=== PATIENT | male | born 1990 | race Caucasian/White ===

== ENCOUNTER 2018-11-05 17:28 | Inpatient (IN) | payer OTHER ==
[~2018-11-05] VITALS: Ht 185.4 cm; Wt 76.3 kg
--- NOTE | 2018-11-05 17:40 | NUR ---
PT BIB [facility] FROM [facility] AFTER WITNESSED SEIZURE ACTIVITY, PT STATES HAS BEEN HAVING SEIZURES OVER LAST FEW DAYS. VISITING FROM [place]. PT REPORTS HEAVY ETOH FOR YEARS, DRINKING ABOUT 1/2 GALLON A DAY. CONNECTED TO ALL MONITORING, TACHY HR, RAPID RESP RATE. SEIZURE PRECAUTIONS IN PLACE. MD TO BEDSIDE FOR ASSESSMENT. CALL LIGHT WITHIN REACH
--- NOTE | 2018-11-05 17:45 | NUR ---
AT BEDSIDE FOR ASSESSMENT
[2018-11-05] MEDS ORDERED: ONDANSETRON 2MG/ML, 2ML ONE (17:51)
[2018-11-05] MEDS ORDERED: LORazepam 2 MG/ML, 1ML ONE (17:51)
[2018-11-05] MEDS ORDERED: THIAMINE 100MG TABLET PO ONE (18:00)
[2018-11-05] MEDS ORDERED: PHENOBARBITAL SODIUM 800 MG in SODIUM CHLORIDE 0.9% 50 ML IVPB ONE (18:00)
[2018-11-05] MEDS ORDERED: ONDANSETRON 2MG/ML, 2ML IVPush ONE (18:00)
[2018-11-05] MEDS ORDERED: LORazepam 2 MG/ML, 1ML IVPush PRN (18:00)
[2018-11-05] MEDS ORDERED: SODIUM CHLORIDE 0.9% 1,000ML IVBOLUS ONE (18:00)
--- NOTE | 2018-11-05 18:04 | NUR ---
LABS COLLECTED, RAD COMPLETED. EKG DONE. PT MEDICATED PER MD REQUEST. WILL CONTINUE TO MONITOR. CALL LIGHT WITHIN REACH
[2018-11-05 18:09] LABS: BASOPHILS # (AUTO) 0.02 x10^3/uL (0-0.1); BASOPHILS % (AUTO) 0 % (0-1); EOSINOPHILS # (AUTO) 0.04 x10^3/uL (0-0.4); EOSINOPHILS % (AUTO) 1 % (1-7); LYMPHOCYTES # (AUTO) 2.24 x10^3/uL (1-3.4); LYMPHOCYTES % (AUTO) 32 % (22-44); MD NO; MEAN CORPUSCULAR HEMOGLOBIN 37.1 pg (27.5-34.5); MEAN CORPUSCULAR HGB CONC 34.7 g/dL (33.2-36.2); MEAN CORPUSCULAR VOLUME 106.7 fL (81-97); MEAN PLATELET VOLUME 8.3 fL (7.4-10.4); MONOCYTES # (AUTO) 0.57 x10^3/uL (0.2-0.8); MONOCYTES % (AUTO) 8 % (2-9); NEUTROPHILS # (AUTO) 4.22 x10^3/uL (1.8-6.8); NEUTROPHILS % (AUTO) 60 % (42-75); PLATELET COUNT 213 x10^3/uL (130-400); RED BLOOD COUNT 4.48 x10^6/uL (4.38-5.82); RED CELL DISTRIBUTION WIDTH 12.9 % (9.4-14.8)
[2018-11-05] MEDS ORDERED: THIAMINE 100MG TABLET ONE (18:15)
[2018-11-05 18:19] LABS: ALANINE AMINOTRANSFERASE 235 U/L (12-78); ALBUMIN 4.3 g/dL (3.4-5.0); ANION GAP 12 mmol/L (5-15); CALCIUM 9.1 mg/dL (8.5-10.1); CHLORIDE 101 mmol/L (98-107); CREATININE 0.85 mg/dL (0.7-1.3)
[2018-11-05 18:21] LABS: ALKALINE PHOSPHATASE 84 U/L (45-117); BILIRUBIN,TOTAL 0.8 mg/dL (0.2-1.0); TOTAL PROTEIN 7.8 g/dL (6.4-8.2)
--- NOTE | 2018-11-05 18:44 | NUR ---
ALL RESULTS BACK AT THIS TIME, CHART UP FOR RECHECK
--- NOTE | 2018-11-05 19:14 | NUR ---
REPORT GIVEN TO MARAL PEDERSEN
--- NOTE | 2018-11-05 19:15 | NUR ---
REPORT RECEIVED FROM VICTOR MANUEL PACKER RN. WITH ASSESSMENT PATIENT DEEP ASLEEP. AROUSABLE ONLY TO TOUCH; BUT PROTECTING AIRWAY ON 2L NC. PATIENT NOTED TO BE SLIGHTLY DIAPHORETIC/WITH FINE TREMOR. AFEBRILE/ AGAIN PATIENT QUITE SEDATED SO NO FURTHER JERRELL AGENTS NEEDED. PROVIDER TO BEDSIDE TO EVALUATE DIAPHORESIS/FINE TREMOR. NO NEW ORDERS AT THIS TIME-WILL CONTINUE TO CLOSELY MONITOR.
--- NOTE | 2018-11-05 19:36 | NUR ---
PER PATIENT'S EARLIER REQUEST (PRIOR TO MEDICATIONS)-HIS MOTHER GURPREET WAS CALLED TO NOTIFY HER THAT HE IS TO BE ADMITTED. SHE CAN BE CONTACTED AT [phone]
--- NOTE | 2018-11-05 19:51 | NUR ---
PATIENT NO LONGER DIAPHORETIC/FINE TREMOR DEMINISHED. PATIENT CONTINUES TO DEEPLY SLEEP WITH NO AIRWAY OR VITAL SIGN ABNORMALITIES. SECOND PIV PLACED. REMAINS ON COMPOSING ROOM MACHINIST APPRENTICE WITH SEIZURE PADDED SIDERAILS UP. WILL CONTINUE TO MONITOR
--- NOTE | 2018-11-05 19:55 | NUR ---
HOSPITALIST AT BEDSIDE
--- NOTE | 2018-11-05 20:26 | NUR ---
ADMIT ORDERS ACKNOWLEDGED. PATIENT CONTINUES TO DEEPLY SLEEP WITH NO AIRWAY, VITAL SIGN ABNORMALITIES OR CIWA ABNORMALITIES. REMAINS ON FILENET ARCHITECT WITH SEIZURE PADDED SIDERAILS UP. WILL CONTINUE TO MONITOR
[2018-11-05] MEDS: PHENOBARBITAL SODIUM IVPB ONE ×2 (20:30→21:55)
[2018-11-05] MEDS ORDERED: FOLIC ACID 5 MG/ML IM ONE (20:30)
[2018-11-05] MEDS ORDERED: ENOXAPARIN 40 MG/0.4 ML SQ SCH (20:30)
[2018-11-05] MEDS: SODIUM CHLORIDE 0.9% IVPB ONE ×2 (20:30→21:55)
[2018-11-05] MEDS ORDERED: THIAMINE 200 MG, FOLIC ACID 1 MG in DEXTROSE 5% 50 ML IVPB ONE (20:30)
[2018-11-05] MEDS ORDERED: ONDANSETRON 2MG/ML, 2ML IV PRN (20:30)
[2018-11-05] MEDS ORDERED: PHARMACY INSTRUCTION MC PRN ×4 (20:30)
--- NOTE | 2018-11-05 20:52 | NUR ---
WITH RE-ASSESSMENT PATIENT NOW AROUSES TO VOICE. ORIENTED BUT STILL QUITE SEDATED (FALLS ASLEEP QUICKLY). NO SIGNS OF WITHDRAWAL NOTED. VSS. LAB AT BEDSIDE TO RE-DRAW LABS. PATIENT CHANGED OUT OF 4 LAYERS OF PANTS TO EXPEDITE UA. PATIENT ATTEMPTING TO VOID. CONDOM CATHETER AT BEDSIDE
[2018-11-05 21:01] LABS: INTERNATIONAL NORMALIZED RATIO 0.92 (0.93-1.1); PROTHROMBIN TIME 9.7 Seconds (9.6-11.5)
[2018-11-05 21:15] VITALS: BP 123/68
--- NOTE | 2018-11-05 21:19 | NUR ---
REPORT TO RAFAEL PEDERSEN PATIENT NOW AWAKE. TOLERTING PO FLUIDS-SLOWLY DRANK 2 BARRIOS. STILL UNABLE TO VOID
[2018-11-05] MEDS ORDERED: POTASSIUM CHLORIDE 40 MEQ, MVI ADULT 10 ML, FOLIC ACID 1 MG, MAGNESIUM SULFATE 1 GM in ... IV SCH (23:00)
[2018-11-06] MEDS ORDERED: PHENOBARBITAL 20 MG/5 ML ORAL SOL PO SCH
[2018-11-06] MEDS ORDERED: DIPHENHYDRAMINE 50 MG CAPSULE PO PRN (03:30)
[2018-11-06 05:24] LABS: ALANINE AMINOTRANSFERASE 195 U/L (12-78); ALBUMIN 3.5 g/dL (3.4-5.0); ANION GAP 7 mmol/L (5-15); CALCIUM 8.2 mg/dL (8.5-10.1); CHLORIDE 102 mmol/L (98-107); CREATININE 0.66 mg/dL (0.7-1.3)
[2018-11-06 05:25] LABS: ALKALINE PHOSPHATASE 70 U/L (45-117); TOTAL PROTEIN 6.4 g/dL (6.4-8.2)
[2018-11-06] MEDS ORDERED: MULTIVITAMINS/MINERALS TABLET PO SCH ×2 (09:00)
[2018-11-06] MEDS ORDERED: THIAMINE 100MG TABLET PO SCH (09:00)
[2018-11-08] MEDS ORDERED: PHENOBARBITAL 20 MG/5 ML ORAL SOL PO SCH
[2018-11-10] MEDS ORDERED: PHENOBARBITAL 20 MG/5 ML ORAL SOL PO SCH
[2018-11-11] MEDS ORDERED: PHENOBARBITAL 20 MG/5 ML ORAL SOL PO SCH
== END 2018-11-06 06:05 | disposition left against medical advice (07) | DRG 433 ==
LOC: ED 19:12 → EDIP 20:05 → CCU 21:28
PROVIDERS: ADMIT Family Medicine; ATTEND Family Medicine
DX: K70.10 Alcoholic hepatitis without ascites (principal); F10.239 Alcohol dependence with withdrawal, unspecified; F17.200 Nicotine dependence, unspecified, uncomplicated; Z59.0 Homelessness; R56.9 Unspecified convulsions; Z53.21 Procedure and treatment not carried out due to patient leaving prior to being seen by health care provider
CPT/HCPCS: 36415; 99291; J7042; 71045; 80053; 80074; 80307; 83690; 83735; 84100; 85025; 85610; 85730; 87081; 87521; 93005; G0378; J1650; J2405; J2560; J3411; J3475; J3480; J2060; J7030

== ENCOUNTER 2018-12-07 11:03 | Emergency (ER) | payer OTHER ==
[~2018-12-07] VITALS: Ht 182.9 cm; Wt 81.0 kg
--- NOTE | 2018-12-07 11:24 | NUR ---
BIB [facility]. Seizure. +EtOH abuse. Last drink 12 hours ago. Patient states, "I feel like my heart is pounding out of my chest." Patient tachycardic, tachypneic and anxious. EKG done. IV started, labs drawn and NS hung. Placed on NIBP, pulse ox and mathematics department chair. Will continue to monitor.
[2018-12-07] MEDS ORDERED: LORazepam 2 MG/ML, 1ML ONE ×2 (11:48→13:34)
[2018-12-07] MEDS ORDERED: SODIUM CHLORIDE 0.9% 1,000ML IVBOLUS ONE (12:00)
[2018-12-07] MEDS ORDERED: D5%-0.45% NACL 1,000 ML IV SCH (12:00)
[2018-12-07] MEDS ORDERED: THIAMINE 100 MG in SODIUM CHLORIDE 0.9% 50 ML IVPB ONE (12:00)
[2018-12-07] MEDS ORDERED: LORazepam 2 MG/ML, 1ML IVPush ONE ×2 (12:00→13:30)
[2018-12-07 12:05] LABS: BASOPHILS # (AUTO) 0.02 x10^3/uL (0-0.1); BASOPHILS % (AUTO) 0 % (0-1); EOSINOPHILS # (AUTO) 0.01 x10^3/uL (0-0.4); EOSINOPHILS % (AUTO) 0 % (1-7); LYMPHOCYTES # (AUTO) 1.19 x10^3/uL (1-3.4); LYMPHOCYTES % (AUTO) 11 % (22-44); MD NO; MEAN CORPUSCULAR HEMOGLOBIN 37.3 pg (27.5-34.5); MEAN CORPUSCULAR HGB CONC 34.5 g/dL (33.2-36.2); MEAN CORPUSCULAR VOLUME 108.1 fL (81-97); MONOCYTES # (AUTO) 0.78 x10^3/uL (0.2-0.8); MONOCYTES % (AUTO) 7 % (2-9); NEUTROPHILS # (AUTO) 9.12 x10^3/uL (1.8-6.8); NEUTROPHILS % (AUTO) 82 % (42-75); PLATELET COUNT 218 x10^3/uL (130-400); RED BLOOD COUNT 4.35 x10^6/uL (4.38-5.82); RED CELL DISTRIBUTION WIDTH 13.2 % (9.4-14.8)
[2018-12-07 12:10] LABS: CHLORIDE 103 mmol/L (98-107)
[2018-12-07 12:11] LABS: ALANINE AMINOTRANSFERASE 114 U/L (12-78); ALBUMIN 4.4 g/dL (3.4-5.0); ANION GAP 25 mmol/L (5-15); CALCIUM 9.9 mg/dL (8.5-10.1); CREATININE 1.05 mg/dL (0.7-1.3)
[2018-12-07 12:13] LABS: ALKALINE PHOSPHATASE 95 U/L (45-117); BILIRUBIN,TOTAL 0.9 mg/dL (0.2-1.0); TOTAL PROTEIN 8.3 g/dL (6.4-8.2)
--- NOTE | 2018-12-07 12:15 | NUR ---
Decreased HR, RR, and anxiety after ativan. No other needs at this time.
[2018-12-07] MEDS ORDERED: CHLORDIAZEPOXIDE 25 MG CAPSULE PO ONE (13:30)
[2018-12-07] MEDS ORDERED: CHLORDIAZEPOXIDE 25 MG CAPSULE ONE (13:33)
--- NOTE | 2018-12-07 13:40 | NUR ---
Resting in [facility]. Meds admin. VSS.
--- NOTE | 2018-12-07 14:54 | NUR ---
TASK RN: Discharge instructions discussed with patient including when to return to emergency department, patient verbalizes understanding. Prescription provided to patient with instruction for use. Patient dresses independently, ambulates independently with a steady gait.
[2018-12-07 14:55] VITALS: BP 138/84
== END 2018-12-07 14:57 ==
LOC: ED 14:19
DX: F10.239 Alcohol dependence with withdrawal, unspecified (principal); R56.9 Unspecified convulsions; R45.1 Restlessness and agitation; Z86.19 Personal history of other infectious and parasitic diseases
CPT/HCPCS: 36415; 80053; 80307; 83735; 85025; 93005; 96365; 96366; 96368; 96375; 96376; 99284; J2060; J3411; J7030